=== PATIENT | male | born 2000 | race Caucasian/White ===

== ENCOUNTER 2021-12-21 01:49 | Emergency (ER) | payer OTHER, SELFPAY ==
[2021-12-21 01:53] VITALS: BP 106/68; PULSE 82; RESP 18; TEMP 36.8; O2SAT 99; BMI 26.9
--- NOTE | 2021-12-21 08:11 | ED.FALL ---
HPI - Fall General Chief Complaint: Fall Stated Complaint: cut to chin Time Seen by Provider: 12/21/21 07:50 Source: patient and family Mode of arrival: ambulatory Limitations: no limitations History of Present Illness HPI Narrative: 21 yo male presents to the ER for evaluation of a chin laceration sustained at 1am when he accidentally tripped and fell onto cement. He also has some small abrasions to his left palm but no other injuries. No LOC. Not on anticoagulation. No headache or neck pain. No active bleeding on arrival. He is UTD on his tetanus shot. MD complaint: fall Onset (ago): hour(s) (7) Fall from: standing Fall witnessed: yes, by family Place fall occurred: home Loss of consciousness: none Prolonged down time: no Symptoms prior to fall: none Context: tripped/slipped Location of injury: face Severity: mild Severity scale (1-10): 3 Quality: aching Associated symptoms (after fall): denies Related Data Allergies Allergy/AdvReac Type Severity Reaction Status Date / Time No Known Allergies Allergy Verified 12/21/21 01:52 Review of Systems Review of Systems: Constitutional: No Fever, No Chills ENT/Mouth: No dental trauma Eyes: No Eye Pain, No Swelling, No Redness Cardiovascular: No Chest Pain, No SOB Gastrointestinal: No Nausea, No Vomiting Genitourinary: No Dysuria, No Urinary Frequency, No Hematuria Musculoskeletal: No joint pain, No Myalgias Skin: +Skin Lesions (lac & abrasion), No rash Neuro: No Weakness, No Numbness, No Dizziness, No Headache Heme/Lymph: + Bruising PMFSH Social History Social History Advance Directives: No Advance Directives Information Provided: No Physical Exam Vital Signs: Vital Signs: Last Vital Signs Temp 98.3 F 12/21/21 01:53 Pulse 82 12/21/21 01:53 Resp 18 12/21/21 01:53 BP 106/68 12/21/21 01:53 Pulse Ox 99 12/21/21 01:53 O2 Del Method 12/21/21 01:53 BMI result Body Mass Index 26.9 Appearance: Alert. Oriented X3. No acute distress. HEENT: 2.5 cm laceration to the chin, irregular minimal active bleeding. no surrounding erythema or ecchymosis, normal open/closing of jaw. no dental trauma. Neck: normal inspection, normal ROM, no midline tenderness. CVS: Normal heart rate and rhythm. Pulses normal. Respiratory: No respiratory distress. Skin: Skin warm and dry. Normal skin color. Normal skin turgor. No rashes. Extremities: superficial abrasions to the left palm. no other signs of trauma Neuro: Oriented X 3. No motor deficit. No sensory deficit. Course Course Course Narrative: 21 yo male with small chin lac s/p mechanical fall. No other injuries. Amenable to sutures and he is agreeable. Reevaluation(s) Reevaluation #1: See procedure note. tolerated well. wound care discussed. stable for d/c. Procedures Laceration Laceration 1: Site: face Size (cm): 2.5 Description: irregular Depth: simple, single layer Local Anesthetic: lidocaine 1% Amount of anesthesia used (mL): 3 Pre-repair: wound explored, irrigated extensively and deep structures intact Skin layer closed with: other (prolene) Size (cm): 6-0 Number of sutures: 3 Technique: simple, interrupted Discharge Plan Discharge Clinical Impression: Chin laceration Patient Disposition: Home, Self-Care Instructions: Laceration (ED) Additional Instructions: You will need your stitches out in 5-7 days. See you doctor for this or come back to the ER and we will remove them. Do not get wet for 24 hours, after that you can briefly wash with soap and water then pat dry. Keep wound clean and covered. Do not submerge in water, no swimming. If you develop signs of infection including increased pain, swelling, redness or drainage of pus come back to the ER for further evaluation.
[2021-12-21] MEDS: Lidocaine HCl 1 % 20 ML VIAL SUBCUT (08:18)
== END 2021-12-21 08:28 | disposition home or self-care (01) ==
PROVIDERS: Emergency Provider Emergency Medicine
DX: S01.81XA Laceration without foreign body of other part of head, initial encounter (principal); W01.0XXA Fall on same level from slipping, tripping and stumbling without subsequent striking against object, initial encounter; Y93.9 Activity, unspecified; Y92.9 Unspecified place or not applicable; Y99.9 Unspecified external cause status
CPT/HCPCS: 12011; 99282; 99284